=== PATIENT | male | born 1945 | race Caucasian/White ===

== ENCOUNTER 2019-12-09 06:51 | Outpatient (CLI) | payer MEDICARE, SELFPAY ==
--- NOTE | 2019-12-09 07:00 | MR_ITS ---
WS: [id number] MRI CERVICAL SPINE HISTORY: CERVICAL RADICULOPATHY, NECK PAIN, RECENT TRAUMA COMPARISON: None available. Slight increase in cervical lordosis. Mild disc desiccation throughout the cervical spine but most si gnificant at C5-6. Endplate osteophytes extending towards the thecal sac and into the foramen. No mar row edema or acute fracture identified. Signal within the cervical cord is normal. Visualized posterior fossa is unremarkable. Craniocervical junction, C1 and C2 relationship, odontoid process and soft tissues are normal. There is a small CSF collection posterior to the cerebellum measuring 3.1 x 1.6 cm consistent with a retroc erebellar arachnoid cyst. C2-C3: Small foraminal osteophytes without stenosis. C3-C4: Osteophytic ridging with annular disc bulging. There is a central disc protrusion contacting t he ventral cord. Mild central stenosis and mild RIGHT foraminal stenosis. Moderate LEFT foraminal adrien nosis due to an osteophyte. C4-C5: Diffuse disc bulging with a central disc protrusion and osteophytic ridging. Mild central and LEFT foraminal stenosis. C5-C6: Diffuse annular disc bulging and osteophytic ridging. Central to LEFT paracentral disc protrus ion with effacement of CSF. Mild contact on the cord. There is moderate central and bilateral foramin al stenosis. C6-C7: Mild annular disc bulging and osteophytic ridging. Very slight central and foraminal stenosis. C7-T1: Very small central disc protrusion. No cord contact. Paraspinal soft tissue are normal. MR/MR cervical spin wo con* [id number] IMPRESSION: 1. Multilevel mild degenerative change and variable stenosis throughout the ce rvical spine. 2. 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 3. Mild central and RIGHT foraminal stenosis at C3-4 with moderate LEFT forami nal stenosis at C3-4 due to an osteophyte. 4. Mild central and LEFT foraminal stenosis at C4-5.
== END 2019-12-09 06:52 | disposition home or self-care (01) ==
LOC: RADSHAW 06:57
PROVIDERS: PCP Internal Medicine; Visit Provider Physical Medicine & Rehabilitation
DX: M54.12 Radiculopathy, cervical region (principal); M54.2 Cervicalgia; M48.02 Spinal stenosis, cervical region; M25.78 Osteophyte, vertebrae
CPT/HCPCS: 72141

== ENCOUNTER → 2023-07-09 09:07 | Outpatient (BNVA) | payer MEDICARE, SELFPAY | PROVIDERS: PCP Nurse Practitioner; Visit Provider Family Medicine | DX: F41.9 Anxiety disorder, unspecified (principal); I10 Essential (primary) hypertension; I25.10 Atherosclerotic heart disease of native coronary artery without angina pectoris; Z95.5 Presence of coronary angioplasty implant and graft; E78.5 Hyperlipidemia, unspecified; K21.9 Gastro-esophageal reflux disease without esophagitis; G25.81 Restless legs syndrome; Z13.6 Encounter for screening for cardiovascular disorders; E03.9 Hypothyroidism, unspecified | CPT/HCPCS: 80053; 80061; 82607; 84443; 85025 ==

== ENCOUNTER 2023-08-13 09:38 | Outpatient (CLI) | payer MEDICARE, SELFPAY ==
[2023-08-13 10:16] LABS: Basophils # 0.1 10^3/uL (0.0-0.1); Basophils % 0.8 %; Eosinophils # 0.2 10^3/uL (0.0-0.8); Eosinophils % 3.3 %; Hematocrit 40.5 % (37-53); Lymphocytes # 1.4 10^3/uL (0.8-4.8); Lymphocytes % 21.9 %; Mean Corpuscular HGB Conc 33.6 g/dL (30-55); Mean Corpuscular Hemoglobin 30.7 pg (27-33); Mean Corpuscular Volume 91.4 fl (82-101); Mean Platelet Volume 9.3 fL (7.4-10.4); Monocytes # 0.7 10^3/uL (0.2-0.9); Monocytes % 11.1 %; Neutrophils # 3.94 10^3/uL (1.8-7.7); Neutrophils % 62.6 %; Nucleated Red Blood Cells % 0 %; Platelet Count 201 10^3/cmm (157-399); Red Blood Count 4.43 10^6/uL (3.85-5.65); Red Cell Distribution Width 12.9 % (12.1-15.1)
[2023-08-13 10:44] LABS: Alanine Aminotransferase 17 U/L (0-41); Albumin Level 4.2 g/dL (3.5-5.2); Alkaline Phosphatase 125 U/L (40-130); Aspartate Amino Transferase 19 U/L (0-40); Blood Urea Nitrogen 22 mg/dL (8-23); Calcium 8.9 mg/dL (8.5-10.5); Carbon Dioxide 26 mmol/L (22-29); Chloride 98 mmol/L (98-107); Globulin 3.3 g/dL (1.3-4.6); Glucose 98 mg/dL (65-115); Osmolality Calculated 283 mOsm/kg (285-295); Sodium 135 mmol/L (136-145); Total Bilirubin 0.3 mg/dL (0.15-1.2); Total Protein 7.5 g/dL (6.6-8.7)
[2023-08-13 10:55] LABS: Creatinine Urine, Random 119 mg/dL (39-259); Microalbum Creatinine Ratio Ur 17 mg/dL (0-20); Microalbumin Random Urine 2 ug/dL (0-20)
[2023-08-13 11:42] LABS: Calcium 8.9 mg/dL (8.5-10.5)
[2023-08-13 11:46] LABS: Parathyroid Hormone 76.8 pg/mL (15-65)
== END 2023-08-13 09:39 | disposition home or self-care (01) ==
LOC: LAB 09:41
PROVIDERS: PCP Nurse Practitioner; Visit Provider Internal Medicine
DX: N18.9 Chronic kidney disease, unspecified (principal)
CPT/HCPCS: 36415; 80053; 82044; 82310; 83970; 85025

== ENCOUNTER → 2023-12-17 09:55 | Outpatient (BNVA) | payer MEDICARE, SELFPAY | PROVIDERS: PCP Nurse Practitioner; Visit Provider Family Medicine | DX: Z13.6 Encounter for screening for cardiovascular disorders (principal); I95.9 Hypotension, unspecified; I25.10 Atherosclerotic heart disease of native coronary artery without angina pectoris; E87.1 Hypo-osmolality and hyponatremia; N18.30 Chronic kidney disease, stage 3 unspecified; E87.5 Hyperkalemia; D64.9 Anemia, unspecified; R53.1 Weakness; R61 Generalized hyperhidrosis; R63.0 Anorexia; R27.9 Unspecified lack of coordination; E03.9 Hypothyroidism, unspecified | CPT/HCPCS: 80053; 80061; 82533; 82607; 84443; 85025; 86140; 86160; 86162; 86235; 86255; 86376 ==

== ENCOUNTER → 2024-01-06 09:36 | Outpatient (BNVA) | payer MEDICARE, SELFPAY | PROVIDERS: PCP Nurse Practitioner; Visit Provider Family Medicine | DX: N18.30 Chronic kidney disease, stage 3 unspecified (principal); R30.0 Dysuria | CPT/HCPCS: 80053; 81003; 82542; 82570; 82652; 83735; 84156; 85025; 87086 ==

== ENCOUNTER 2024-02-11 14:42 | Outpatient (CLI) | payer MEDICARE, SELFPAY | END 2024-02-11 14:43 | disposition home or self-care (01) | PROVIDERS: PCP Family Medicine; Visit Provider Family Medicine | DX: G47.33 Obstructive sleep apnea (adult) (pediatric) (principal); R61 Generalized hyperhidrosis | CPT/HCPCS: G0399 ==

== ENCOUNTER → 2024-07-14 10:03 | Outpatient (BNVA) | payer MEDICARE, SELFPAY | PROVIDERS: PCP Family Medicine; Visit Provider Family Medicine | DX: E03.9 Hypothyroidism, unspecified (principal); R53.1 Weakness | CPT/HCPCS: 82607; 84443 ==

== ENCOUNTER → 2024-11-20 08:46 | Outpatient (BNVA) | payer MEDICARE, SELFPAY | PROVIDERS: PCP Family Medicine; Visit Provider Family Medicine | DX: I10 Essential (primary) hypertension (principal); I25.10 Atherosclerotic heart disease of native coronary artery without angina pectoris; E78.5 Hyperlipidemia, unspecified; E87.1 Hypo-osmolality and hyponatremia; R61 Generalized hyperhidrosis; F32.A Depression, unspecified | CPT/HCPCS: 80053; 80061; 85025 ==

== ENCOUNTER 2024-12-15 14:46 | Outpatient (CLI) | payer MEDICARE, SELFPAY ==
--- NOTE | 2024-12-15 15:35 | USCV_ITS ---
Harjeet Vasquez Age: 79 Gender: M : 1945 Exam Date: 12/15/2024 15:13 Ordering Phys: Rogelio Craven NP Technologist: R [place] [facility] [place]: [place] leg pain HISTORY: Lower extremity pain-RIGHT PROCEDURES: Venous duplex imaging was performed in only the right lower extremity. The following venous structures were evaluated: common femoral vein, profunda vein, proximal portion of the greater saphenous vein, superficial femoral vein, and the popliteal vein. In addition, the posterior tibial and peroneal trunk were evaluated. FINDINGS: No evidence of DVT seen in any vessel visualized at this time. CONCLUSIONS No evidence of right lower extremity DVT. Chevy Mcconnell MD (Electronically Signed) Final Date: 15 December 2024 15:40 S
== END 2024-12-15 14:47 | disposition home or self-care (01) ==
LOC: RAD 14:49
PROVIDERS: PCP Family Medicine; Visit Provider Clinical Nurse Specialist Adult Health
DX: R60.0 Localized edema (principal)
CPT/HCPCS: 93971

== ENCOUNTER 2025-02-10 11:22 | Outpatient (CLI) | payer MEDICARE, SELFPAY ==
[2025-02-10 12:54] LABS: Anion Gap 12.9 (5-19); Blood Urea Nitrogen 24 mg/dL (8-23); Calcium 9.1 mg/dL (8.5-10.5); Carbon Dioxide 26 mmol/L (22-29); Chloride 100 mmol/L (98-107); Glucose 193 mg/dL (65-115); Osmolality Calculated 289 mOsm/kg (285-295); Potassium 3.9 mmol/L (3.5-5.1); Sodium 135 mmol/L (136-145); Total Protein 7.1 g/dL (6.6-8.7)
[2025-02-11 07:55] LABS: PROTEIN, TOTAL 6.3 g/dL (6.1-8.1)
[2025-02-11 20:14] LABS: ALPHA 1 GLOBULIN 0.3 g/dL (0.2-0.3); ALPHA 2 GLOBULIN 0.8 g/dL (0.5-0.9); BETA 1 GLOBULIN 0.3 g/dL (0.4-0.6); BETA 2 GLOBULIN 0.3 g/dL (0.2-0.5)
== END 2025-02-10 11:23 | disposition home or self-care (01) ==
PROVIDERS: PCP Family Medicine; Visit Provider Nurse Practitioner
DX: N18.30 Chronic kidney disease, stage 3 unspecified (principal)
CPT/HCPCS: 36415; 80048; 84155; 84165

== ENCOUNTER → 2025-03-30 08:28 | Outpatient (BNVA) | payer MEDICARE, SELFPAY | PROVIDERS: PCP Family Medicine; Visit Provider Family Medicine | DX: I10 Essential (primary) hypertension (principal); E87.1 Hypo-osmolality and hyponatremia; N18.30 Chronic kidney disease, stage 3 unspecified; R32 Unspecified urinary incontinence; G62.9 Polyneuropathy, unspecified; B00.1 Herpesviral vesicular dermatitis | CPT/HCPCS: 80053 ==